=== PATIENT | female | born 1995 | race Caucasian/White ===

== ENCOUNTER 2016-12-17 17:10 | Emergency (ER) | payer MEDICAID ==
[~2016-12-17] VITALS: Ht 170.2 cm; Wt 59.0 kg
[~2016-12-17 17:10] MED LIST: ACET325T38 PO; IBUP-1773 PO; PREN1TAB86 PO
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
[2016-12-17 18:01] LABS: BASOPHILS % (AUTO) 0 % (0-10); EOSINOPHILS # (AUTO) 0.1 10^3/uL (0.0-0.3); EOSINOPHILS % (AUTO) 1 % (0-10); LYMPHOCYTES # (AUTO) 1.2 X 10^3 (1.0-4.0); LYMPHOCYTES % (AUTO) 14 % (12-44); MEAN CORPUSCULAR HEMOGLOBIN 31 PG (25-34); MEAN CORPUSCULAR HGB CONC 35 G/DL (32-36); MEAN CORPUSCULAR VOLUME 90 FL (80-99); MEAN PLATELET VOLUME 11.5 FL (7.4-10.4); MONOCYTES # (AUTO) 0.7 X 10^3 (0.0-1.0); MONOCYTES % (AUTO) 8 % (0-12); NEUTROPHILS # (AUTO) 7.1 X 10^3 (1.8-7.8); NEUTROPHILS % (AUTO) 78 % (42-75); PLATELET COUNT 174 10^3/uL (130-400); RED BLOOD COUNT 4.77 10^6/uL (4.35-5.85); RED CELL DISTRIBUTION WIDTH 12.8 % (10.0-14.5); WHITE BLOOD COUNT 9.1 10^3/uL (4.3-11.0)
--- NOTE | 2016-12-17 18:32 | Diagnostic Imaging Report ---
CLINICAL INDICATION: Patient states her right foot was stepped on and complains of right foot pain, second digit pain and swelling. EXAM: X-ray of the right foot, 3 views and right toes. COMPARISON: None. FINDINGS: There is no evidence of acute fracture or dislocation. There is no significant bone or joint abnormality. IMPRESSION: There is no acute fracture or dislocation. Dictated by: Dictated on workstation # [id number]
[2016-12-17] MEDS ORDERED: AMOX-358 PO (18:40)
[2016-12-17] MEDS ORDERED: AUGMENTIN 875 MG TAB (AMOXICILLIN/CLAVULANATE) PO SCH (18:45)
[2016-12-17] MEDS ORDERED: AUGMENTIN 875 MG TAB (AMOXICILLIN/CLAVULANATE) ONE (18:45)
[2016-12-17 18:52] VITALS: BP 127/83
== END 2016-12-17 18:52 | disposition home or self-care (01) ==
LOC: EDUNIT# 17:10 → ER 17:12
DX: S90.414A Abrasion, right lesser toe(s), initial encounter (principal); J02.9 Acute pharyngitis, unspecified; Z23 Encounter for immunization; F17.210 Nicotine dependence, cigarettes, uncomplicated; W50.0XXA Accidental hit or strike by another person, initial encounter; Y99.8 Other external cause status
CPT/HCPCS: 36415; 73660; 85025; 86308; 87430; 99282

== ENCOUNTER 2020-01-02 17:15 | Emergency (ER) | payer SELFPAY ==
[~2020-01-02] VITALS: Ht 166 cm; Wt 60.0 kg
[~2020-01-02 17:15] MED LIST changes: +AMOX-358 PO
--- NOTE | 2020-01-02 17:37 | ED General ---
General Chief Complaint: Neurological Problems Stated Complaint: MIGRAINE,N/V Nursing Triage Note: THE PT IS AMBULATORY TO THE ROOM WITHOUT DIFFICULTY. NO DISTRESS IS SEEN ON ARRIVAL. LOC IS NORMAL FOR THE PT. THE PT C/O OF A HEADACHE. Nursing Sepsis Screen: No Definite Risk Source of Information: Patient Exam Limitations: No Limitations History of Present Illness Date Seen by Provider: January 02, 2020 Time Seen by Provider: 17:30 Initial Comments 24-year-old female who presents to the emergency room with complaints of a migraine headache for the past day. She reports that she gets headaches frequently and this is very similar but it is not going away with Tylenol. She also reports mild nausea. She also requests to have a test. Timing/Duration: 1 Day Associated Systoms: Headaches, Nausea/Vomiting Allergies and Home Medications Allergies Coded Allergies: No Known Drug Allergies (Unverified , 11/06/15) Home Medications Amoxicillin/Potassium Clav 1 Each Tablet, 1 EACH PO BID Prescribed by: GABBI NO on 12/17/16 1840 Patient Home Medication List Home Medication List Reviewed: Yes Review of Systems Review of Systems Constitutional: see HPI; No chills, No fever Psychiatric/Neurological: See HPI, Headache All Other Systems Reviewed Negative Unless Noted: Yes Past Xixukew-Iasngf-Trkezw Hx Past Med/Social Hx: Reviewed Nursing Past Med/Soc Hx Patient Social History Type Used: Cigarettes Recent Foreign Travel: No Contact w/Someone Who Travel: No Recent Infectious Disease Expo: No Recent Hopitalizations: No Immunizations Up To Date Tetanus Booster (TDap): Less than 5yrs Date of Influenza Vaccine: Apr 20, 2016 Seasonal Allergies Seasonal Allergies: No Past Medical History Surgeries: No Respiratory: No Cardiac: No Neurological: No Reproductive Disorders: No HIV/AIDS: No Gastrointestinal: No Musculoskeletal: No Endocrine: No Cancer: No Psychosocial: No Integumentary: No Blood Disorders: No Family Medical History Reviewed Nursing Family Hx Patient reports no known family medical history. Physical Exam Vital Signs Vital Signs - First Documented 01/02/20 17:26 Temp 36.5 Pulse 50 Resp 14 B/P (MAP) 117/50 (72) Pulse Ox 100 Capillary Refill : Less Than 3 Seconds Height, Weight, BMI Height: 5'7.00" Weight: 130lbs. 0.8oz. 58.270349xf; 21.00 BMI Method:Stated General Appearance: No Apparent Distress, WD/WN Eyes: Bilateral Eye Normal Inspection, Bilateral Eye PERRL, Bilateral Eye EOMI HEENT: PERRL/EOMI, TMs Normal, Normal ENT Inspection, Pharynx Normal Respiratory: Chest Non Tender, Lungs Clear, Normal Breath Sounds, No Accessory Muscle Use, No Respiratory Distress Cardiovascular: Regular Rate, Rhythm, No Edema, No Gallop, No JVD, No Murmur, Normal Peripheral Pulses Neurologic/Psychiatric: Alert, Oriented x3, No Motor/Sensory Deficits, Normal Mood/Affect Skin: Normal Color, Warm/Dry Progress/Results/Core Measures Suspected Sepsis Recent Fever Within 48 Hours: No Infection Criteria Present: None New/Unexplained Altered Menta: No Sepsis Screen: No Definite Risk SIRS Temperature: Pulse: 50 Respiratory Rate: 14 Blood Pressure 117 /50 Mean: 72 Results/Orders My Orders Orders - LINA KWAN Urine Bedside (01/02/20 17:28) Prochlorperazine Injection (Compazine In (01/02/20 17:45) Ketorolac Injection (Toradol Injection) (01/02/20 17:45) Diphenhydramine Injection (Benadryl Inje (01/02/20 17:45) Medications Given in ED Current Medications Medications Dose Ordered Sig/Claudio Route Start Time Stop Time Status Last Admin Dose Admin Diphenhydramine HCl 50 mg ONCE ONCE IM 01/02/20 17:45 01/02/20 17:46 DC 01/02/20 17:46 50 MG Ketorolac Tromethamine 60 mg ONCE ONCE IM 01/02/20 17:45 01/02/20 17:46 DC 01/02/20 17:50 60 MG Prochlorperazine Edisylate 10 mg ONCE ONCE IM 01/02/20 17:45 01/02/20 17:46 DC 01/02/20 17:48 10 MG Vital Signs/I&O 01/02/20 01/02/20 17:26 19:03 Temp 36.5 36.5 Pulse 50 50 Resp 14 18 B/P (MAP) 117/50 (72) 117/87 Pulse Ox 100 100 Capillary Refill : Less Than 3 Seconds Blood Pressure Mean: 72 Progress Note : Time: 18:47 Progress Note I have seen and evaluated the patient. I've informed her of her laboratory findings. She is pain-free at this time and her migraine and nausea has resolved. She agrees with plan of care, plans for discharge, return precautions were given. Departure Impression Primary Impression: Migraine Disposition: 01 HOME, SELF-CARE Condition: Stable/Unchanged Departure-Patient Inst. Decision time for Depature: 18:47 Referrals: [facility] (PCP/Family) Primary Care Physician Patient Instructions: Migraine Headache (DC) Add. Discharge Instructions: May continue to use ibuprofen and Tylenol as needed for pain relief. Follow-up with your primary care provider within 1 week for recheck. Return back to the emergency room for worsening symptoms or concerns as needed. All discharge instructions reviewed with patient and/or family. Voiced understanding. LINA KWAN January 02, 2020 17:37
[2020-01-02] MEDS ORDERED: PROCHLORPERAZINE 10 MG/2ML INJ (COMPAZINE) IM ONE (17:45)
[2020-01-02] MEDS ORDERED: diphenhydrAMINE 50 MG/ML INJ (BENADRYL) IM ONE (17:45)
[2020-01-02] MEDS ORDERED: KETOROLAC 60 MG/2 ML VIAL IM ONE (17:45)
[2020-01-02 19:03] VITALS: BP 117/87
== END 2020-01-02 19:06 | disposition home or self-care (01) ==
LOC: EDUNIT# 17:15 → ER 17:17
DX: G43.909 Migraine, unspecified, not intractable, without status migrainosus (principal)
CPT/HCPCS: 84703; 99284